=== PATIENT | female | born 1950 | race Caucasian/White ===

== ENCOUNTER → 2017-08-17 | Outpatient (CLI) | payer MEDICARE, OTHER | END | disposition home or self-care (01) | LOC: CFH 14:54 | PROVIDERS: ATTEND Nurse Practitioner Primary Care | DX: R05 Cough (principal); R53.83 Other fatigue; E78.2 Mixed hyperlipidemia; E03.9 Hypothyroidism, unspecified; G47.00 Insomnia, unspecified; M85.80 Other specified disorders of bone density and structure, unspecified site; D72.820 Lymphocytosis (symptomatic); J32.9 Chronic sinusitis, unspecified; R00.2 Palpitations; J18.9 Pneumonia, unspecified organism; R19.7 Diarrhea, unspecified; Z86.19 Personal history of other infectious and parasitic diseases; Z78.9 Other specified health status; Z85.3 Personal history of malignant neoplasm of breast | CPT/HCPCS: 71046 ==